=== PATIENT | male | born 1975 | race Asian ===

== ENCOUNTER 2017-02-18 18:31 | Emergency (ER) | payer BC | END 2017-02-18 19:15 | disposition home or self-care (01) | LOC: ED 18:31 | DX: R11.11 Vomiting without nausea (principal) | CPT/HCPCS: 99281 ==

== ENCOUNTER 2017-03-29 19:30 | Observation (INO) | payer BC ==
[~2017-03-29] VITALS: Ht 160 cm; Wt 90.9 kg
[2017-03-29 20:05] VITALS: BP 128/77; TEMP 98.2
[2017-03-29 22:13] LABS: PLATELET COUNT 361 K/uL (142-355)
[2017-03-29 22:35] LABS: POTASSIUM 3.1 mmol/L (3.6-5.2); SODIUM 136 mmol/L (136-145)
[2017-03-30] VITALS (7 sets, daily range): BP systolic 116–133; BP diastolic 68–80; TEMP 97.6–98.3; Ht 160 cm; Wt 90.9 kg
--- NOTE | 2017-03-30 03:30 | NUR ---
03/30/17 0159 PT TO ROOM 1127 DX PANCREATITIS,VOMITING.ORIENTED TO ROOM A/O SALINE LOCK TO LEFT AC 18 GAUDGE INTACT.PT REQUESTING PAIN MEDICATION.PT STATES HE IS HURTING IN LEFT SIDE.CC
[2017-03-30 13:21] LABS: PLATELET COUNT 312 K/uL (142-355)
[2017-03-30 13:26] LABS: POTASSIUM 3.5 mmol/L (3.6-5.2); SODIUM 136 mmol/L (136-145)
[2017-03-31] VITALS: BP 115/60; TEMP 98.1
[2017-03-31 04:00] VITALS: BP 125/54; TEMP 98.2
[2017-03-31 06:19] LABS: PLATELET COUNT 333 K/uL (142-355)
[2017-03-31 06:23] LABS: POTASSIUM 3.4 mmol/L (3.6-5.2); SODIUM 138 mmol/L (136-145)
[2017-03-31 08:00] VITALS: BP 108/65; TEMP 97.9
[2017-03-31 12:00] VITALS: BP 112/62; TEMP 98.2
--- NOTE | 2017-03-31 18:28 | NUR ---
PT DISCHARGED HOME @ 1530, IV D/C'D TIP INTACT, NO REDNESS EDEMA OR SWELLING NOTED, PT WAS GIVEN D/C INSTRUCTIONS, AMBULATED TO PRIVATE VEHICLE WITH SPOUSE. NAD NOTED, NO C/O VOICED AT THIS TIME.
== END 2017-03-31 15:30 | disposition home or self-care (01) ==
LOC: ED 19:30 → MED/SURG 03-30 01:10
PROVIDERS: Emergency Medicine; ADMIT Emergency Medicine
DX: K85.90 Acute pancreatitis without necrosis or infection, unspecified (principal)
CPT/HCPCS: 80048; 80053; 80061; 81000; 82150; 82550; 83690; 84484; 85027; 96361; 96374; 96375; 99220; 99284; G0378; J1650; J2270; J2405; J3490; Q9963